=== PATIENT | male | born 1950 | race Caucasian/White ===

== ENCOUNTER 2019-05-15 07:10 | Day surgery (SDC) | payer OTHER ==
[2019-05-15 08:20] VITALS: BP_SYST 121
[2019-05-15] MEDS ORDERED: MEPERIDINE HCL/PF 100 MG/ML AMP ONE (08:45)
[2019-05-15] MEDS ORDERED: SIMETHICONE 40 MG/0.6 ML ML ONE (08:46)
[2019-05-15] MEDS ORDERED: MIDAZOLAM HCL 5 MG/5 ML VIAL ONE (08:46)
[2019-05-15] MEDS ORDERED: GLYCOPYRROLATE 0.2 MG/ML VIAL ONE (08:47)
[2019-05-15] MEDS: MIDAZOLAM HCL 5 MG/5 ML VIAL ONE ×3 (09:27→09:33)
== END 2019-05-15 10:40 | disposition home or self-care (01) ==
LOC: SDS 07:10 → SMU 07:10 → SDS 10:40
PROVIDERS: ATTEND Colon & Rectal Surgery
DX: Z12.11 Encounter for screening for malignant neoplasm of colon (principal); K52.9 Noninfective gastroenteritis and colitis, unspecified; K62.89 Other specified diseases of anus and rectum
CPT/HCPCS: 45378; G0378; J2175; J2250; J7030; J3490